=== PATIENT | male | born 1960 | race African-American/Black ===

== ENCOUNTER 2017-08-09 21:25 | Emergency (ER) | payer SELFPAY ==
[~2017-08-09] VITALS: Ht 172.7 cm; Wt 65.0 kg
[~2017-08-09 21:25] MED LIST: DICL75 PO; METF500 PO; MICO2CRE4 TOP; ROBA750T3 PO
[2017-08-09 21:33] VITALS: BP 143/90; PULSE 100; RESP 16; TEMP 98.1; O2SAT 100
[2017-08-09 23:08] VITALS: BP 136/78; PULSE 85; RESP 16; TEMP 98.4; O2SAT 99
--- NOTE | 2017-08-10 02:11 | PD ---
HPI Chief Complaint: Suicide Ideation/Attempt Time Seen by Provider: 23:08 Travel History International Travel<30 days: No Contact w/Intl Traveler<30days: No Traveled to known affect area: No History of Present Illness HPI 56-year-old black male presents emergency department on a voluntary basis for psychological evaluation. Patient states that he is feeling increasingly depressed and having suicidal thoughts. He does not have any current plan. Patient states that he has a history of chronic alcohol abuse. He just lost his job yesterday. He states that he lives in a homeless fci. Patient states that he drinks on a daily basis. He denies any drugs. He denies any toxic ingestions. He merely states that he is tired of living. He denies any homicidal ideation. PFSH Past Medical History Narrative Medical Chronic alcohol abuse, depression, diabetes Hx Anticoagulant Therapy: No Anxiety: Yes Depression: Yes Cardiovascular Problems: No Chemotherapy: No Cerebrovascular Accident: No Diabetes: Yes Patient Takes Glucophage: Yes (pt states "couple weeks ago") Diminished Hearing: No Psychiatric: Yes Respiratory: No Tetanus Vaccination: < 5 Years Influenza Vaccination: No Past Surgical History Surgical History: No Previous Surgery Social History Alcohol Use: Yes (daily) Tobacco Use: Yes Substance Use: No Allergies-Medications (Allergen,Severity, Reaction): Coded Allergies: No Known Allergies (Unverified Adverse Reaction, Unknown, 08/09/17) Reported Meds & Prescriptions Reported Meds & Active Scripts Active No Active Prescriptions or Reported Medications Review of Systems General / Constitutional: No: Fever Eyes: No: Visual changes HENT: No: Headaches Cardiovascular: No: Chest Pain or Discomfort Respiratory: No: Shortness of Breath Gastrointestinal: No: Abdominal Pain Genitourinary: No: Dysuria Musculoskeletal: No: Pain Skin: No Rash Neurologic: No: Weakness Psychiatric: Positive: Depression, Suicidal Ideations, Mood Disorder, Substance Abuse, No: Disorder of Thought, Homicidal Ideation Endocrine: No: Polydipsia Hematologic/Lymphatic: No: Easy Bruising Physical Exam Narrative GENERAL: Well-nourished, well-developed patient. SKIN: Warm and dry. HEAD: Normocephalic and atraumatic. EYES: No scleral icterus. No injection or drainage. ENT: No nasal drainage noted. Mucous membranes pink. Airway patent. NECK: Supple, trachea midline. Moves head freely without obvious discomfort. CARDIOVASCULAR: Regular rate and rhythm without murmurs, gallops, or rubs. RESPIRATORY: Breath sounds equal bilaterally. No accessory muscle use. GASTROINTESTINAL: Abdomen soft, non-tender, nondistended. EXTREMITIES: No cyanosis or edema. BACK: Nontender without obvious deformity. No CVA tenderness. NEURO: Patient is alert and oriented. no sensorimotor deficits. Nonfocal. Normal speech. PSYCH: No delusions. No auditory or visual hallucinations. Data Data Last Documented VS Vital Signs Date Time Temp Pulse Resp B/P (MAP) Pulse Ox O2 Delivery O2 Flow Rate FiO2 08/09/17 23:08 98.4 85 16 136/78 (97) 99 Room Air Orders Orders Complete Blood Count With Diff (08/10/17 02:07) Comprehensive Metabolic Panel (08/10/17 02:07) Thyroid Stimulating Hormone (08/10/17 02:07) Psych Screen (08/10/17 02:07) Drug Screen, Random Urine (08/10/17 02:07) Alcohol (Ethanol) (08/10/17 02:07) Salicylates (Aspirin) (08/10/17 02:07) Tylenol (Acetaminophen) (08/10/17 02:07) Labs Laboratory Tests Test 08/10/17 03:00 08/10/17 03:30 White Blood Count 5.8 TH/MM3 Red Blood Count 5.13 MIL/MM3 Hemoglobin 15.0 GM/DL Hematocrit 44.1 % Mean Corpuscular Volume 85.8 FL Mean Corpuscular Hemoglobin 29.3 PG Mean Corpuscular Hemoglobin Concent 34.1 % Red Cell Distribution Width 14.8 % Platelet Count 194 TH/MM3 Mean Platelet Volume 9.6 FL Neutrophils (%) (Auto) 34.0 % Lymphocytes (%) (Auto) 50.6 % Monocytes (%) (Auto) 12.1 % Eosinophils (%) (Auto) 2.2 % Basophils (%) (Auto) 1.1 % Neutrophils # (Auto) 2.0 TH/MM3 Lymphocytes # (Auto) 2.9 TH/MM3 Monocytes # (Auto) 0.7 TH/MM3 Eosinophils # (Auto) 0.1 TH/MM3 Basophils # (Auto) 0.1 TH/MM3 CBC Comment DIFF FINAL Differential Comment Blood Urea Nitrogen 15 MG/DL Creatinine 0.88 MG/DL Random Glucose 137 MG/DL Total Protein 8.3 GM/DL Albumin 3.3 GM/DL Calcium Level 9.0 MG/DL Alkaline Phosphatase 131 U/L Aspartate Amino Transf (AST/SGOT) 77 U/L Alanine Aminotransferase (ALT/SGPT) 87 U/L Total Bilirubin 0.6 MG/DL Sodium Level 141 MEQ/L Potassium Level 3.8 MEQ/L Chloride Level 107 MEQ/L Carbon Dioxide Level 25.7 MEQ/L Anion Gap 8 MEQ/L Estimat Glomerular Filtration Rate 109 ML/MIN Thyroid Stimulating Hormone 3rd Gen 1.040 uIU/ML Salicylates Level 4.4 MG/DL Acetaminophen Level LESS THAN 2.0 MCG/ML Ethyl Alcohol Level 13 MG/DL Urine Opiates Screen NEG Urine Barbiturates Screen NEG Urine Amphetamines Screen NEG Urine Benzodiazepines Screen NEG Urine Cocaine Screen POS Urine Cannabinoids Screen POS MDM Medical Decision Making Medical Screen Exam Complete: Yes Emergency Medical Condition: Yes Medical Record Reviewed: Yes Interpretation(s) Laboratory Tests Test 08/10/17 03:00 08/10/17 03:30 White Blood Count 5.8 TH/MM3 Red Blood Count 5.13 MIL/MM3 Hemoglobin 15.0 GM/DL Hematocrit 44.1 % Mean Corpuscular Volume 85.8 FL Mean Corpuscular Hemoglobin 29.3 PG Mean Corpuscular Hemoglobin Concent 34.1 % Red Cell Distribution Width 14.8 % Platelet Count 194 TH/MM3 Mean Platelet Volume 9.6 FL Neutrophils (%) (Auto) 34.0 % Lymphocytes (%) (Auto) 50.6 % Monocytes (%) (Auto) 12.1 % Eosinophils (%) (Auto) 2.2 % Basophils (%) (Auto) 1.1 % Neutrophils # (Auto) 2.0 TH/MM3 Lymphocytes # (Auto) 2.9 TH/MM3 Monocytes # (Auto) 0.7 TH/MM3 Eosinophils # (Auto) 0.1 TH/MM3 Basophils # (Auto) 0.1 TH/MM3 CBC Comment DIFF FINAL Differential Comment Blood Urea Nitrogen 15 MG/DL Creatinine 0.88 MG/DL Random Glucose 137 MG/DL Total Protein 8.3 GM/DL Albumin 3.3 GM/DL Calcium Level 9.0 MG/DL Alkaline Phosphatase 131 U/L Aspartate Amino Transf (AST/SGOT) 77 U/L Alanine Aminotransferase (ALT/SGPT) 87 U/L Total Bilirubin 0.6 MG/DL Sodium Level 141 MEQ/L Potassium Level 3.8 MEQ/L Chloride Level 107 MEQ/L Carbon Dioxide Level 25.7 MEQ/L Anion Gap 8 MEQ/L Estimat Glomerular Filtration Rate 109 ML/MIN Thyroid Stimulating Hormone 3rd Gen 1.040 uIU/ML Salicylates Level 4.4 MG/DL Acetaminophen Level LESS THAN 2.0 MCG/ML Ethyl Alcohol Level 13 MG/DL Urine Opiates Screen NEG Urine Barbiturates Screen NEG Urine Amphetamines Screen NEG Urine Benzodiazepines Screen NEG Urine Cocaine Screen POS Urine Cannabinoids Screen POS Differential Diagnosis MDM: High Differential diagnoses: Schizophrenia, schizoaffective disorder, bipolar, anxiety, depression, adjustment reaction, mood disorder NOS, ODD, depressive disorder NOS, psychosis NOS, substance induced mood disorder, infection, electrolyte abnormality, malingering. Narrative Course Mental health screening discussed with the patient. Psychiatric screen ordered. The patient has been medically cleared. This is medical clearance for psychiatric admission Diagnosis Primary Impression: Medical clearance for psychiatric admission Scripts No Active Prescriptions or Reported Meds Condition: Stable Manoj Islas Aug 10, 2017 02:11
[2017-08-10 03:11] LABS: BASOPHIL # 0.1 TH/MM3 (0-0.2); BASOPHIL % 1.1 % (0.0-2.0); EOSINOPHIL # 0.1 TH/MM3 (0-0.4); EOSINOPHIL % 2.2 % (0.0-4.0); HEMATOCRIT 44.1 % (39.0-51.0); LYMPH % 50.6 % (9.0-44.0); LYMPHOCYTE # 2.9 TH/MM3 (1.0-4.8); MEAN CELL VOLUME 85.8 FL (80.0-100.0); MEAN CORPUSCULAR HEMOGLOBIN 29.3 PG (27.0-34.0); MEAN CORPUSCULAR HGB CONC 34.1 % (32.0-36.0); MEAN PLATELET VOLUME 9.6 FL (7.0-11.0); MONO % 12.1 % (0.0-8.0); MONOCYTE # 0.7 TH/MM3 (0-0.9); PLATELET COUNT 194 TH/MM3 (150-450); RED BLOOD COUNT 5.13 MIL/MM3 (4.50-5.90); RED CELL DISTRIBUTION WIDTH 14.8 % (11.6-17.2); WHITE BLOOD COUNT 5.8 TH/MM3 (4.0-11.0)
[2017-08-10 03:27] LABS: ALBUMIN 3.3 GM/DL (3.4-5.0); ALT (GPT) 87 U/L (12-78); AST (GOT) 77 U/L (15-37); BICARBONATE 25.7 MEQ/L (21.0-32.0); BLOOD UREA NITROGEN 15 MG/DL (7-18); CHLORIDE 107 MEQ/L (98-107); CREATININE 0.88 MG/DL (0.60-1.30); GLOMERULAR FILTRATION RATE 109 ML/MIN (>89); GLUCOSE,RANDOM 137 MG/DL (74-106); SODIUM (NA) 141 MEQ/L (136-145)
[2017-08-10 03:36] LABS: ALKALINE PHOSPHATASE 131 U/L (45-117); TOTAL BILIRUBIN ADULT 0.6 MG/DL (0.2-1.0); TOTAL PROTEIN 8.3 GM/DL (6.4-8.2)
[2017-08-10 03:41] LABS: ACETAMINOPHEN LESS THAN 2.0 MCG/ML (10.0-30.0)
[2017-08-10 07:30] VITALS: BP 166/107; PULSE 95; RESP 14; TEMP 99; O2SAT 100
--- NOTE | 2017-08-10 08:42 | PD ---
Physical Exam Date Seen by Provider: Aug 10, 2017 Time Seen by Provider: 08:40 Narrative 56-year-old male previously cleared for psychiatric evaluation on a voluntary basis for suicidal ideation, has been seen by psychiatric staff, and deemed medically and psychiatrically stable for discharge at this time. Patient should follow with a primary care physician and as recommended by psychiatric note. Data Data Last Documented VS Vital Signs Date Time Temp Pulse Resp B/P (MAP) Pulse Ox O2 Delivery O2 Flow Rate FiO2 08/10/17 07:30 99.0 95 14 166/107 (126) 100 Room Air Orders Orders Complete Blood Count With Diff (08/10/17 02:07) Comprehensive Metabolic Panel (08/10/17 02:07) Thyroid Stimulating Hormone (08/10/17 02:07) Psych Screen (08/10/17 02:07) Drug Screen, Random Urine (08/10/17 02:07) Alcohol (Ethanol) (08/10/17 02:07) Salicylates (Aspirin) (08/10/17 02:07) Tylenol (Acetaminophen) (08/10/17 02:07) Diet Regular Basic (08/10/17 Breakfast) Labs Laboratory Tests Test 08/10/17 03:00 08/10/17 03:30 White Blood Count 5.8 TH/MM3 Red Blood Count 5.13 MIL/MM3 Hemoglobin 15.0 GM/DL Hematocrit 44.1 % Mean Corpuscular Volume 85.8 FL Mean Corpuscular Hemoglobin 29.3 PG Mean Corpuscular Hemoglobin Concent 34.1 % Red Cell Distribution Width 14.8 % Platelet Count 194 TH/MM3 Mean Platelet Volume 9.6 FL Neutrophils (%) (Auto) 34.0 % Lymphocytes (%) (Auto) 50.6 % Monocytes (%) (Auto) 12.1 % Eosinophils (%) (Auto) 2.2 % Basophils (%) (Auto) 1.1 % Neutrophils # (Auto) 2.0 TH/MM3 Lymphocytes # (Auto) 2.9 TH/MM3 Monocytes # (Auto) 0.7 TH/MM3 Eosinophils # (Auto) 0.1 TH/MM3 Basophils # (Auto) 0.1 TH/MM3 CBC Comment DIFF FINAL Differential Comment Blood Urea Nitrogen 15 MG/DL Creatinine 0.88 MG/DL Random Glucose 137 MG/DL Total Protein 8.3 GM/DL Albumin 3.3 GM/DL Calcium Level 9.0 MG/DL Alkaline Phosphatase 131 U/L Aspartate Amino Transf (AST/SGOT) 77 U/L Alanine Aminotransferase (ALT/SGPT) 87 U/L Total Bilirubin 0.6 MG/DL Sodium Level 141 MEQ/L Potassium Level 3.8 MEQ/L Chloride Level 107 MEQ/L Carbon Dioxide Level 25.7 MEQ/L Anion Gap 8 MEQ/L Estimat Glomerular Filtration Rate 109 ML/MIN Thyroid Stimulating Hormone 3rd Gen 1.040 uIU/ML Salicylates Level 4.4 MG/DL Acetaminophen Level LESS THAN 2.0 MCG/ML Ethyl Alcohol Level 13 MG/DL Urine Opiates Screen NEG Urine Barbiturates Screen NEG Urine Amphetamines Screen NEG Urine Benzodiazepines Screen NEG Urine Cocaine Screen POS Urine Cannabinoids Screen POS MDM Medical Record Reviewed: Yes Supervised Visit with TATIANA: Yes Narrative Course 56-year-old male previously cleared for psychiatric evaluation on a voluntary basis for suicidal ideation, has been seen by psychiatric staff, and deemed medically and psychiatrically stable for discharge at this time. Patient should follow with a primary care physician and as recommended by psychiatric note. Diagnosis Primary Impression: Medical clearance for psychiatric admission Additional Impressions: Polysubstance abuse Passive suicidal ideations Referrals: [facility] Patient Instructions: General Instructions Med/Other Pt SpecificInfo: No Meds Exist/No RX given Scripts No Active Prescriptions or Reported Meds Disposition: DISCHARGE HOME Condition: Stable Jr Horvath Aug 10, 2017 08:42
--- NOTE | 2017-08-10 13:02 | PD ---
History of Present Illness Chief Complaint: Suicide Ideation/Attempt Time Seen by Provider: 10:30 Travel History International Travel<30 Days: No Contact w/Intl Traveler<30days: No Known affected area: No History of Present Illness: Reviewed electronic medical record, labs and discussed case with staff. Evaluation was conducted in patient's room in the main ED. Patient was found sitting up on the stretcher in his room awake, alert, and oriented 4. His speech is clear, logical, and organized. His tox screen is positive for cocaine, cannabinoids, and he reports drinking alcohol. He denies suicidal ideation however, he states "I wish I could go to sleep and not wake up ". When asked why he is depressed he states that he lost his job yesterday. When asked why he lost his job the patient reports that he was caught drinking on the job. He denies homicidal ideation, auditory or visual hallucinations. There is no indication of internal stimulation. I can elicit no delusional material. His mood is somewhat sad and his affect is sad as well. However he does laugh and smile during the interview. His last visit for detox [facility] 3 [facility] ago. He reports being a chronic alcoholic for "40 years". PFSH Past Medical History Hx Anticoagulant Therapy: No Anxiety: Yes Depression: Yes Cardiovascular Problems: No Chemotherapy: No Cerebrovascular Accident: No Diabetes: Yes Patient Takes Glucophage: Yes (pt states "couple weeks ago") Diminished Hearing: No Psychiatric: Yes Respiratory: No Tetanus Vaccination: < 5 Years Influenza Vaccination: No Past Surgical History Surgical History: No Previous Surgery Psychiatric History Psychiatric History Polysubstance abuse. Denies mental health diagnoses. History of Inpatient Treatment: No Guns or firearms in home: No Social History Hx Alcohol Use: Yes (daily) Hx Tobacco Use: Yes Hx Substance Use: No Hx of Substance Use Treatment: Yes Family Psychiatric History Denies familial history of suicide or mental illness. Allergies-Medications (Allergen,Severity, Reaction): Coded Allergies: No Known Allergies (Unverified Adverse Reaction, Unknown, 08/09/17) Reported Meds & Prescriptions Reported Meds & Active Scripts Active No Active Prescriptions or Reported Medications Mental Status Examination Appearance: Disheveled Consciousness: Alert Orientation: x4 Motor Activity: Normal gait Speech: Unremarkable Language: Adequate Fund of Knowledge: Adequate Attention and Concentration: Adequate Memory: Unremarkable Mood: Appropriate Affect: Appropriate Thought Process & Associations: Intact Thought Content: Appropriate Hallucination Type: None Delusion Type: None Suicidal Ideation: No (States that he wishes he would not wake up. Denies any intent or plan.) Suicidal Plan: No Suicidal Intention: No Homicidal Ideation: No Homicidal Plan: No Homicidal Intention: No Insight: Adequate Judgment: Adequate [facility] Medical Decision Making Medical Record Reviewed: Yes Assessment/Plan This is a 56-year-old, single, -[place] male who presents voluntarily to this facility for reported suicidal ideation. Upon examination today patient is alert, awake, and oriented 4. His speech is clear, logical, and organized. There is no indication of internal stimulation. He denies suicidal ideation, homicidal ideation, auditory or visual hallucinations. I can elicit no delusional material. He reports feeling sad due to loss of a job yesterday as a result of being caught drinking on the job. Patient reports a long chronic history of alcohol abuse. His last inpatient detox admission was approximate 3 months ago at [facility]. He reports that he drinks alcohol "daily and a lot". Discussed with patient the importance of him taking responsibility and maintaining sobriety after his inpatient visits. Patient does not meet [facility] nor inpatient criteria admission. He will be advised to follow-up at the outpatient [facility] detox center. He will also be advised to return to this facility if his condition worsens. Orders Orders Complete Blood Count With Diff (08/10/17 02:07) Comprehensive Metabolic Panel (08/10/17 02:07) Thyroid Stimulating Hormone (08/10/17 02:07) Psych Screen (08/10/17 02:07) Drug Screen, Random Urine (08/10/17 02:07) Alcohol (Ethanol) (08/10/17 02:07) Salicylates (Aspirin) (08/10/17 02:07) Tylenol (Acetaminophen) (08/10/17 02:07) Diet Regular Basic (08/10/17 Breakfast) Ed Discharge Order (08/10/17 10:32) Results Vital Signs Date Time Temp Pulse Resp B/P (MAP) Pulse Ox O2 Delivery O2 Flow Rate FiO2 08/10/17 10:52 08/10/17 07:30 99.0 95 14 166/107 (126) 100 Room Air 08/09/17 23:08 98.4 85 16 136/78 (97) 99 Room Air 08/09/17 21:33 98.1 100 16 143/90 (107) 100 Laboratory Tests Test 08/10/17 03:00 08/10/17 03:30 White Blood Count 5.8 Red Blood Count 5.13 Hemoglobin 15.0 Hematocrit 44.1 Mean Corpuscular Volume 85.8 Mean Corpuscular Hemoglobin 29.3 Mean Corpuscular Hemoglobin Concent 34.1 Red Cell Distribution Width 14.8 Platelet Count 194 Mean Platelet Volume 9.6 Neutrophils (%) (Auto) 34.0 Lymphocytes (%) (Auto) 50.6 Monocytes (%) (Auto) 12.1 Eosinophils (%) (Auto) 2.2 Basophils (%) (Auto) 1.1 Neutrophils # (Auto) 2.0 Lymphocytes # (Auto) 2.9 Monocytes # (Auto) 0.7 Eosinophils # (Auto) 0.1 Basophils # (Auto) 0.1 CBC Comment DIFF FINAL Differential Comment Blood Urea Nitrogen 15 Creatinine 0.88 Random Glucose 137 Total Protein 8.3 Albumin 3.3 Calcium Level 9.0 Alkaline Phosphatase 131 Aspartate Amino Transf (AST/SGOT) 77 Alanine Aminotransferase (ALT/SGPT) 87 Total Bilirubin 0.6 Sodium Level 141 Potassium Level 3.8 Chloride Level 107 Carbon Dioxide Level 25.7 Anion Gap 8 Estimat Glomerular Filtration Rate 109 Thyroid Stimulating Hormone 3rd Gen 1.040 Salicylates Level 4.4 Acetaminophen Level LESS THAN 2.0 Ethyl Alcohol Level 13 Urine Opiates Screen NEG Urine Barbiturates Screen NEG Urine Amphetamines Screen NEG Urine Benzodiazepines Screen NEG Urine Cocaine Screen POS Urine Cannabinoids Screen POS Diagnosis Primary Impression: Alcohol dependence with alcohol-induced mood disorder Referrals: [facility] Forms: Tests/Procedures Patient Instructions: General Instructions, Polysubstance Abuse (ED) Prescriptions No Active Prescriptions or Reported Meds Disposition: 01 DISCHARGE HOME Condition: Stable [place]se [place] THADDEUS Aug 10, 2017 13:02
== END 2017-08-10 11:20 | disposition home or self-care (01) ==
LOC: NEPD 21:25
DX: F10.20 Alcohol dependence, uncomplicated (principal); F10.24 Alcohol dependence with alcohol-induced mood disorder; F19.10 Other psychoactive substance abuse, uncomplicated; E11.9 Type 2 diabetes mellitus without complications; F32.9 Major depressive disorder, single episode, unspecified; Z87.891 Personal history of nicotine dependence
CPT/HCPCS: 80053; 80307; 84443; 85025; 99284

== ENCOUNTER 2017-08-12 10:48 | Emergency (ER) | payer SELFPAY ==
[~2017-08-12] VITALS: Ht 172.7 cm; Wt 64.0 kg
[2017-08-12 10:52] VITALS: BP 168/98; PULSE 72; RESP 18; TEMP 98.9; O2SAT 99
[2017-08-12] MEDS ORDERED: METF500T PO (10:56)
--- NOTE | 2017-08-12 11:08 | PD ---
HPI Chief Complaint: Pain: Acute or Chronic Time Seen by Provider: 10:53 Travel History International Travel<30 days: No Contact w/Intl Traveler<30days: No Traveled to known affect area: No History of Present Illness HPI This patient woke up this morning with some pain in his left trapezius area. There is no injury or fall. Duration 3 hours. He is currently at [facility] [place] for drug rehab. He was seen here 2 days ago and had full medical workup including lab studies. PFSH Past Medical History Hx Anticoagulant Therapy: No Anxiety: Yes Depression: Yes Cardiovascular Problems: No Chemotherapy: No Cerebrovascular Accident: No Diabetes: Yes Diminished Hearing: No Psychiatric: Yes Respiratory: No Social History Alcohol Use: Yes (daily) Tobacco Use: Yes Substance Use: No Allergies-Medications (Allergen,Severity, Reaction): Coded Allergies: No Known Allergies (Unverified Adverse Reaction, Unknown, 08/09/17) Uncoded Allergies: SEAFOOD (Adverse Reaction, Unknown, 08/12/17) Reported Meds & Prescriptions Reported Meds & Active Scripts Active Reported Metformin (Metformin HCl) 500 Mg Tab 500 Mg PO BIDPC Review of Systems General / Constitutional: No: Fever HENT: No: Headaches Cardiovascular: No: Chest Pain or Discomfort Physical Exam Narrative GASTROINTESTINAL: Abdomen soft, non-tender, nondistended. Positive bowel sounds. No hepato-splenomegaly, or palpable masses. No guarding. NECK: Symmetrical appearance, midline trachea. No mass or crepitus. Thyroid without enlargement, tenderness, or mass. SKIN: Focused skin assessment reveals no rash or ulcers. Skin is warm and dry. Palpation shows no induration or nodules. Musculoskeletal: Good range of motion of left shoulder. No long bone tenderness. He has tenderness that is readily reproducible in the left trapezius with palpation Data Data Last Documented VS Vital Signs Date Time Temp Pulse Resp B/P (MAP) Pulse Ox O2 Delivery O2 Flow Rate FiO2 08/12/17 10:52 98.9 72 18 168/98 (121) 99 MDM Medical Decision Making Medical Screen Exam Complete: Yes Emergency Medical Condition: Yes Medical Record Reviewed: Yes Differential Diagnosis Trapezius strain, shoulder dislocation, contusion Narrative Course I have reviewed the patient's electronic medical record. Reviewed his workup from 2 days ago This patient presentation is consistent with left-sided trapezius pain. I do not see any indication for x-rays. Is readily reproducible and certainly seems soft tissue/muscular. No clinical suspicion of ACS Diagnosis Primary Impression: Strain of left trapezius muscle Qualified Codes: S46.812A - Strain of other muscles, fascia and tendons at shoulder and upper arm level, left arm, initial encounter Additional Instructions: Return to [facility] [place] for drug rehab The patient was advised to follow up with their physician and return if they worsen. Med/Other Pt SpecificInfo: Other Disposition: 01 DISCHARGE HOME Condition: Stable Mykel Live MD Aug 12, 2017 11:08
== END 2017-08-12 11:38 | disposition home or self-care (01) ==
LOC: NEPD 10:48
DX: S46.812A Strain of other muscles, fascia and tendons at shoulder and upper arm level, left arm, initial encounter (principal); X58.XXXA Exposure to other specified factors, initial encounter
CPT/HCPCS: 99281